=== PATIENT | female | born 1970 | race Native Hawaiian/Other Pacific Islander ===

== ENCOUNTER 2017-04-06 08:16 | Outpatient (CLI) | payer BC | END 2017-04-06 19:29 | disposition home or self-care (01) | LOC: MAMMO 08:16 | DX: Z12.31 Encounter for screening mammogram for malignant neoplasm of breast (principal) | CPT/HCPCS: G0202-TC ==

== ENCOUNTER 2018-04-28 14:39 | Outpatient (CLI) | payer BC | END 2018-04-28 19:46 | disposition home or self-care (01) | LOC: MAMMO 14:39 | DX: Z12.31 Encounter for screening mammogram for malignant neoplasm of breast (principal) ==

== ENCOUNTER 2019-05-02 08:30 | Outpatient (CLI) | payer BC | END 2019-05-02 22:50 | disposition home or self-care (01) | LOC: MAMMO 08:30 | DX: Z12.31 Encounter for screening mammogram for malignant neoplasm of breast (principal) ==

== ENCOUNTER 2020-05-10 09:42 | Outpatient (CLI) | payer BC | END 2020-05-10 23:54 | disposition home or self-care (01) | LOC: MAMMO 09:42 | DX: Z12.31 Encounter for screening mammogram for malignant neoplasm of breast (principal) ==

== ENCOUNTER 2021-05-13 08:33 | Outpatient (CLI) | payer BC | END 2021-05-13 19:01 | disposition home or self-care (01) | LOC: MAMMO 08:33 | PROVIDERS: ATTEND Obstetrics & Gynecology | DX: Z12.31 Encounter for screening mammogram for malignant neoplasm of breast (principal) ==

== ENCOUNTER 2021-10-10 08:24 | Outpatient (CLI) | payer BC | END 2021-10-10 19:53 | disposition home or self-care (01) | LOC: RAD 08:24 | PROVIDERS: ATTEND Internal Medicine | DX: Z13.820 Encounter for screening for osteoporosis (principal); N95.8 Other specified menopausal and perimenopausal disorders ==